=== PATIENT | male | born 1955 | race Caucasian/White ===

== ENCOUNTER 2017-03-20 19:16 | Emergency (ER) | payer OTHER ==
--- NOTE | 2017-03-20 20:53 | DIAGNOSTIC IMAGING REPORT ---
PROCEDURE: CT ABDOMEN/PELVIS W/O CONTRAST INDICATION: Bilateral flank pain with hematuria. TECHNIQUE: Noncontrast axial images were obtained of the entire abdomen and pelvis with sagittal and coronal reformations. COMPARISON: None. FINDINGS: ABDOMEN: 5.2 mm left UVJ calculus with mild left hydro ureteronephrosis. Bilateral nonobstructing renal calculi (2 - 4 mm). Mild bibasilar atelectasis. Heart size is normal. Liver, gallbladder, pancreas, spleen (splenule) and adrenal glands are normal. Mild atherosclerosis of the aorta. PELVIS: Normal appendix. Mild sigmoid diverticulosis. Diastasis of the rectus muscles. Circumferential urinary bladder wall thickening which may be due to lack of distention versus cystitis. Mild degenerative changes of the spine. IMPRESSION: 1. 5.2 mm left UVJ calculus with mild left hydroureteronephrosis 2. Bilateral nonobstructing renal calculi 3. Circumferential urinary bladder wall thickening which may be due to lack of distention versus cystitis 4. Mild sigmoid diverticulosis 5. Results discussed with Opal Cardozo All CT scans at this facility use dose modulation, iterative reconstruction, and/or weight-based dosing when appropriate to reduce radiation dose to as low as reasonably achievable.
--- NOTE | 2017-03-20 22:47 | ED CLINICAL REPORT ---
Clinical Report - Physicians/Mid Levels [facility] [address] [place] [address] 03/20/2017 19:18 Patient: MARCO NEWMAN Time Seen: 20:25; initial patient contact, initial documentation, patient care assumed. Arrived- By private vehicle. Historian- patient and spouse. HISTORY OF PRESENT ILLNESS Chief Complaint: DYSURIA and HEMATURIA. This started today and is still present. The problem is described as severe. It was abrupt in onset and has been constant. No penile discharge, discomfort with urination, urinary frequency, genital lesion or testicular pain. No urgency of urination, Siddiqui catheter problem, inguinal swelling or problem with the foreskin. The patient has had severe, constant, sharp right-sided and left-sided flank pain. Able to void. Not voiding only small amounts. Sexual history is noncontributory. Similar symptoms previously: Once, milder. ( kidney stone). Recent medical care: Not recently seen/assessed. REVIEW OF SYSTEMS No fever, diarrhea, chest pain or difficulty breathing. He has had flank pain, abdominal pain and vomiting. The vomiting has occurred only once. The patient has had hematuria. All systems otherwise negative, except as recorded above. PAST HISTORY See nurses notes. ( PROBLEMS: Acid Reflux. Hypertension. Diabetes Mellitus. --20:17 Slava Johnson R.N. Nephrolithiasis. --20:21 Slava Johnson R.N. ADDITIONAL SURGERIES: Hammer toe repair. Shoulder Surgery. --20:17 Slava Johnson R.Rupali.). SOCIAL HISTORY Never smoker. Regular alcohol use. No drug use. No recent travel. Is a local resident. FAMILY HISTORY Negative. ADDITIONAL NOTES The nursing notes have been reviewed with agreement regarding the chief complaint, HPI, ROS, PMH and patient medications and allergies. PHYSICAL EXAM Vital Signs: 03/20/2017 20:14 BP: 137/93. HR: 68. RR: 24. O2 saturation: 98%. Temp: 98.4 F. Pain level now: 7/10. Have been reviewed as normal and appear to be correct. Appearance: Alert. Oriented X3. No acute distress. ENT: Normal external inspection. Pharynx normal. Neck: Neck supple. CVS: Heart sounds normal. Respiratory: No respiratory distress. Breath sounds normal. Abdomen: Soft and nontender. Bowel sounds normal. No organomegaly. No mass. Back: Abnormal external inspection. Mild CVA tenderness on the right and left. Skin: Skin warm and dry. Normal skin color. No rash. Normal skin turgor. Extremities: Extremities exhibit normal ROM. No lower extremity edema. Neuro: Oriented X 3. No motor deficit. No sensory deficit. LABS, X-RAYS, AND EKG Abdominal CT: . IMPRESSION: 1. 5.2 mm left UVJ calculus with mild left hydroureteronephrosis 2. Bilateral nonobstructing renal calculi 3. Circumferential urinary bladder wall thickening which may be due to lack of distention versus cystitis 4. Mild sigmoid diverticulosis 5. Results discussed with Opal Cardozo All CT scans at this facility use dose modulation, iterative reconstruction, and/or weight-based dosing when appropriate to reduce radiation dose to as low as reasonably achievable. Electronically Final signed by:Nickolas Hatch MD 03/20/2017 8:53:02 PM. The study was interpreted by the radiologist and discussed with the radiologist. Interpretation time: 2049. Laboratory Tests: UA-Culture if indicated: (NANCY: 03/20/2017 22:15) ( [facility] 03/20/2017 22:43) IP Test Result Flag Units (Reference) URINE COLOR YELLOW URINE APPEARANCE SL CLOUDY URINE GLUCOSE NEGATIVE (NEGATIVE) URINE BILIRUBIN NEGATIVE (NEGATIVE) URINE KETONE TRACE (NEGATIVE) URINE SPECIFIC GRAVITY >= 1.030 (1.010-1.030) URINE PH 5.5 (5.0-8.0) URINE PROTEIN 2+ (NEGATIVE) URINE UROBILINOGEN 0.2 EU/dL (0.2-1.0) URINE NITRITE NEGATIVE (NEGATIVE) URINE BLOOD 3+ (NEGATIVE) URINE LEUK ESTERASE NEGATIVE (NEGATIVE) CBC w Diff: (NANCY: 03/20/2017 16:50) ( [facility] 03/20/2017 20:53) Final results Test Result Flag Units (Reference) WHITE BLOOD COUNT 8.4 K/uL (4.5-11.5) RED BLOOD COUNT 4.56 M/uL (4.50-5.90) HEMOGLOBIN 14.0 gm/dL (13.5-17.5) HEMATOCRIT 42.2 % (41.0-53.0) MEAN CELL VOLUME 93 fL (80-100) MEAN CORPUSCULAR HGB 31 pg (26-34) MEAN CORPUSCULAR HGB CONC 33 g/dL (31-37) RED CELL DISTRIBUTION WIDTH 13.9 % (11.6-14.8) PLATELET COUNT 152 K/uL (150-400) NEUTROPHIL % 71.4 % (50-75) LYMPH % 17.7 L % (25-40) MONO % 8.7 % (3-14) EOSINOPHIL % 1.9 % (0-4) BASOPHIL % 0.3 % (0-2) CMP: (NANCY: 03/20/2017 16:50) ( MsgRcvd 03/20/2017 21:15) Final results Test Result Flag Units (Reference) GLUCOSE 137 H mg/dL (70-110) BUN 15 mg/dL (7-18) CREATININE 0.9 mg/dL (0.6-1.3) Estimated GFR >60 mL/min Estimated GFR- >60 mL/min Note: Persistent reduction over 3 months in eGFR<60 mL/min/1.73 m2 defines CKD. Patients with eGFR values>=60 mL/min/1.73 m2 may also have CKD if evidence ofpersistent proteinuria. Additional information may be foundat www.kidney.org. SODIUM 136 mmol/L (136-145) POTASSIUM 3.8 mmol/L (3.5-5.1) CHLORIDE 100 mmol/L (98-107) CARBON DIOXIDE 26 mmol/L (21-32) CALCIUM 9.1 mg/dL (8.5-10.1) TOTAL PROTEIN 8.3 H g/dL (6.4-8.2) ALBUMIN 3.9 g/dL (3.3-5.0) BILIRUBIN, TOTAL 0.7 mg/dL (0.0-1.0) ALKALINE PHOSPHATASE 81 U/L (46-116) AST (SGOT) 31 U/L (15-37) ALT (SGPT) 48 U/L (12-78) LIPASE 211 U/L (73-393) AMYLASE 51 U/L (25-115) . PROGRESS AND PROCEDURES Course of Care: 2209. pt and spouse updated with results and need for ua, pt still has not voided, discussed doing siddiqui catheter if he can not void. 03/20/2017 22:58 BP: 115/84. HR: 74. RR: 18. O2 saturation: 95%. Pain level now: 12/13. Vital Signs: have been reviewed as normal and appear to be correct. Patient and spouse counseled in person regarding the patient's stable condition, test results and diagnosis. 22:44. Differential Diagnosis: I considered gastritis, gastroenteritis, peptic ulcer disease, gastroesophageal reflux disease, acute appendicitis, diverticulitis, colon cancer, ulcerative colitis, Crohn's disease, biliary colic, cholecystitis, cholelithiasis, hepatitis, pancreatitis, common bile duct obstruction, urinary tract infection, prostatitis, ureterolithiasis and viral syndrome as a possible cause of abdominal pain in this patient. This is a partial list of diagnoses considered. Above considerations are based on history, physical exam, reassessment, laboratory data and other information. Differential diagnosis was discussed with patient. Disposition: Discharged home in good and improved condition (22:47). Condition: good and stable. CLINICAL IMPRESSION Ureterolithiasis (multiple stones) in the right ureter and kidney and left kidney with renal colic, hydronephrosis and hematuria. No acute pyelonephritis or urinary tract infection. INSTRUCTIONS Do not work today, for two days. Drink plenty of fluids for the next 24 hours until better. Warnings: GENERAL WARNINGS: Return or contact your physician immediately if your condition worsens or changes unexpectedly, if not improving as expected, or if other problems arise. Specifically return if problem worsens. Prescription Medications: Zofran 4 mg: Take 1 orally every six hours as needed for nausea/vomiting. Dispense ten (10). No refills. Substitution is permissible. [place] 5 mg / 325 mg tablets: take 1 to 2 orally every 6 hours as needed for pain. Dispense fifteen (15). No refills. Substitution is permissible. Toradol 10 mg tablets: Take 1 tablet orally every 6 hours as needed. Dispense fifteen (15). No refills. Substitution is permissible. Flomax 0.4 mg: take 1 orally every 24 hours. Dispense fifteen (15). No refills. Substitution is permissible. Follow-up: Follow up with your doctor in about two days even if well. Call for an appointment. Summary of care provided to patient and family. Understanding of the discharge instructions verbalized by patient. Follow-up with: Ramon Lazar MD, Urology, , [address] [address]; Trey Kay MD, Urology, , [address] [address] Follow up in about two days as needed. Call for an appointment. Summary of care provided to patient and family. (Electronically signed by Opal Cardozo A.R.N.P. 03/20/2017 23:03)
--- NOTE | 2017-03-20 22:47 | ED ORDER SUMMARY ---
..... Patient: MARCO NEWMAN [facility] VisitID: [id number] [address] [place] [address] 61y, M Registration Date/Time: 03/20/2017 ORDER SHEET Weight: 92.9 kg (stated) Allergies: No Known Drug Allergy GENERAL ORDERS: CT Abd/Pel wo Cont Urgent (20:30 03/20/2017 HBivens A.R.N.P.) (Ack 20:35 [facility] [employer]) (20:47 MCampbell) CBC w Diff Urgent (20:31 03/20/2017 HBivens A.R.N.P.) (20:31 DDavis R.N.) CMP Urgent (20:31 03/20/2017 HBivens A.R.N.P.) (20:31 DDavis R.N.) UA-Culture if indicated Urgent (20:31 03/20/2017 HBivens A.R.N.P.) (Ack 20:32 DDavis R.N.) (22:37 DDavis R.N.) Amylase Urgent (20:31 03/20/2017 HBivens A.R.N.P.) (20:31 DDavis R.N.) Lipase Urgent (20:31 03/20/2017 HBivens A.R.N.P.) (20:31 DDavis R.N.) MEDICATION ORDERS: Hydrocodone-APAP PO 5/325 mg (NOW, HIGH ALERT MEDICATION) (22:48 03/20/2017 HBivens A.R.N.P.) (22:58 DDavis R.N.) IV FLUIDS: IV NS : initial bolus 1000 mL (1000 mL/hr), then none - (NOW) (20:30 03/20/2017 HBivens A.R.N.P.) (Ack 20:32 DDavis R.N.) (20:39 DDavis R.N.) Toradol IV 30 mg (NOW) (20:30 03/20/2017 HBivens A.R.N.P.) (Ack 20:32 DDavis R.N.) (20:39 DDavis R.N.) Zofran IV 4 mg (NOW) (20:30 03/20/2017 HBivens A.R.N.P.) (Ack 20:32 DDavis R.N.) (20:39 DDavis R.N.) IV Saline Lock (20:31 03/20/2017 HBivens A.R.N.P.) (20:31 DDavis R.N.) ORDER SHEET NOTES: [Electronically signed by Slava Johnson R.N. (23:03/20/2017)] [Electronically signed by Opal CardozoNStephaniePStephanie (23:03 03/20/2017)] [Electronically locked/signed by Slava Johnson R.N. (23:03/20/2017)]
--- NOTE | 2017-03-20 22:47 | ED CLINICAL REPORT ---
Clinical Report - Physicians/Mid Levels [facility] [address] [place] [address] 03/20/2017 19:18 Patient: MARCO NEWMAN Time Seen: 20:25; initial patient contact, initial documentation, patient care assumed. Arrived- By private vehicle. Historian- patient and spouse. HISTORY OF PRESENT ILLNESS Chief Complaint: DYSURIA and HEMATURIA. This started today and is still present. The problem is described as severe. It was abrupt in onset and has been constant. No penile discharge, discomfort with urination, urinary frequency, genital lesion or testicular pain. No urgency of urination, Siddiqui catheter problem, inguinal swelling or problem with the foreskin. The patient has had severe, constant, sharp right-sided and left-sided flank pain. Able to void. Not voiding only small amounts. Sexual history is noncontributory. Similar symptoms previously: Once, milder. ( kidney stone). Recent medical care: Not recently seen/assessed. REVIEW OF SYSTEMS No fever, diarrhea, chest pain or difficulty breathing. He has had flank pain, abdominal pain and vomiting. The vomiting has occurred only once. The patient has had hematuria. All systems otherwise negative, except as recorded above. PAST HISTORY See nurses notes. ( PROBLEMS: Acid Reflux. Hypertension. Diabetes Mellitus. --20:17 Slava Johnson R.N. Nephrolithiasis. --20:21 Slava Johnson R.N. ADDITIONAL SURGERIES: Hammer toe repair. Shoulder Surgery. --20:17 Slava Johnson R.Rupali.). SOCIAL HISTORY Never smoker. Regular alcohol use. No drug use. No recent travel. Is a local resident. FAMILY HISTORY Negative. ADDITIONAL NOTES The nursing notes have been reviewed with agreement regarding the chief complaint, HPI, ROS, PMH and patient medications and allergies. PHYSICAL EXAM Vital Signs: 03/20/2017 20:14 BP: 137/93. HR: 68. RR: 24. O2 saturation: 98%. Temp: 98.4 F. Pain level now: 7/10. Have been reviewed as normal and appear to be correct. Appearance: Alert. Oriented X3. No acute distress. ENT: Normal external inspection. Pharynx normal. Neck: Neck supple. CVS: Heart sounds normal. Respiratory: No respiratory distress. Breath sounds normal. Abdomen: Soft and nontender. Bowel sounds normal. No organomegaly. No mass. Back: Abnormal external inspection. Mild CVA tenderness on the right and left. Skin: Skin warm and dry. Normal skin color. No rash. Normal skin turgor. Extremities: Extremities exhibit normal ROM. No lower extremity edema. Neuro: Oriented X 3. No motor deficit. No sensory deficit. LABS, X-RAYS, AND EKG Abdominal CT: . IMPRESSION: 1. 5.2 mm left UVJ calculus with mild left hydroureteronephrosis 2. Bilateral nonobstructing renal calculi 3. Circumferential urinary bladder wall thickening which may be due to lack of distention versus cystitis 4. Mild sigmoid diverticulosis 5. Results discussed with Opal Cardozo All CT scans at this facility use dose modulation, iterative reconstruction, and/or weight-based dosing when appropriate to reduce radiation dose to as low as reasonably achievable. Electronically Final signed by:Nickolas Hatch MD 03/20/2017 8:53:02 PM. The study was interpreted by the radiologist and discussed with the radiologist. Interpretation time: 2049. Laboratory Tests: UA-Culture if indicated: (NANCY: 03/20/2017 22:15) ( [facility] 03/20/2017 22:43) IP Test Result Flag Units (Reference) URINE COLOR YELLOW URINE APPEARANCE SL CLOUDY URINE GLUCOSE NEGATIVE (NEGATIVE) URINE BILIRUBIN NEGATIVE (NEGATIVE) URINE KETONE TRACE (NEGATIVE) URINE SPECIFIC GRAVITY >= 1.030 (1.010-1.030) URINE PH 5.5 (5.0-8.0) URINE PROTEIN 2+ (NEGATIVE) URINE UROBILINOGEN 0.2 EU/dL (0.2-1.0) URINE NITRITE NEGATIVE (NEGATIVE) URINE BLOOD 3+ (NEGATIVE) URINE LEUK ESTERASE NEGATIVE (NEGATIVE) CBC w Diff: (NANCY: 03/20/2017 16:50) ( [facility] 03/20/2017 20:53) Final results Test Result Flag Units (Reference) WHITE BLOOD COUNT 8.4 K/uL (4.5-11.5) RED BLOOD COUNT 4.56 M/uL (4.50-5.90) HEMOGLOBIN 14.0 gm/dL (13.5-17.5) HEMATOCRIT 42.2 % (41.0-53.0) MEAN CELL VOLUME 93 fL (80-100) MEAN CORPUSCULAR HGB 31 pg (26-34) MEAN CORPUSCULAR HGB CONC 33 g/dL (31-37) RED CELL DISTRIBUTION WIDTH 13.9 % (11.6-14.8) PLATELET COUNT 152 K/uL (150-400) NEUTROPHIL % 71.4 % (50-75) LYMPH % 17.7 L % (25-40) MONO % 8.7 % (3-14) EOSINOPHIL % 1.9 % (0-4) BASOPHIL % 0.3 % (0-2) CMP: (NANCY: 03/20/2017 16:50) ( MsgRcvd 03/20/2017 21:15) Final results Test Result Flag Units (Reference) GLUCOSE 137 H mg/dL (70-110) BUN 15 mg/dL (7-18) CREATININE 0.9 mg/dL (0.6-1.3) Estimated GFR >60 mL/min Estimated GFR- >60 mL/min Note: Persistent reduction over 3 months in eGFR<60 mL/min/1.73 m2 defines CKD. Patients with eGFR values>=60 mL/min/1.73 m2 may also have CKD if evidence ofpersistent proteinuria. Additional information may be foundat www.kidney.org. SODIUM 136 mmol/L (136-145) POTASSIUM 3.8 mmol/L (3.5-5.1) CHLORIDE 100 mmol/L (98-107) CARBON DIOXIDE 26 mmol/L (21-32) CALCIUM 9.1 mg/dL (8.5-10.1) TOTAL PROTEIN 8.3 H g/dL (6.4-8.2) ALBUMIN 3.9 g/dL (3.3-5.0) BILIRUBIN, TOTAL 0.7 mg/dL (0.0-1.0) ALKALINE PHOSPHATASE 81 U/L (46-116) AST (SGOT) 31 U/L (15-37) ALT (SGPT) 48 U/L (12-78) LIPASE 211 U/L (73-393) AMYLASE 51 U/L (25-115) . PROGRESS AND PROCEDURES Course of Care: 2209. pt and spouse updated with results and need for ua, pt still has not voided, discussed doing siddiqui catheter if he can not void. 03/20/2017 22:58 BP: 115/84. HR: 74. RR: 18. O2 saturation: 95%. Pain level now: 12/13. Vital Signs: have been reviewed as normal and appear to be correct. Patient and spouse counseled in person regarding the patient's stable condition, test results and diagnosis. 22:44. Differential Diagnosis: I considered gastritis, gastroenteritis, peptic ulcer disease, gastroesophageal reflux disease, acute appendicitis, diverticulitis, colon cancer, ulcerative colitis, Crohn's disease, biliary colic, cholecystitis, cholelithiasis, hepatitis, pancreatitis, common bile duct obstruction, urinary tract infection, prostatitis, ureterolithiasis and viral syndrome as a possible cause of abdominal pain in this patient. This is a partial list of diagnoses considered. Above considerations are based on history, physical exam, reassessment, laboratory data and other information. Differential diagnosis was discussed with patient. Disposition: Discharged home in good and improved condition (22:47). Condition: good and stable. CLINICAL IMPRESSION Ureterolithiasis (multiple stones) in the right ureter and kidney and left kidney with renal colic, hydronephrosis and hematuria. No acute pyelonephritis or urinary tract infection. INSTRUCTIONS Do not work today, for two days. Drink plenty of fluids for the next 24 hours until better. Warnings: GENERAL WARNINGS: Return or contact your physician immediately if your condition worsens or changes unexpectedly, if not improving as expected, or if other problems arise. Specifically return if problem worsens. Prescription Medications: Zofran 4 mg: Take 1 orally every six hours as needed for nausea/vomiting. Dispense ten (10). No refills. Substitution is permissible. [place] 5 mg / 325 mg tablets: take 1 to 2 orally every 6 hours as needed for pain. Dispense fifteen (15). No refills. Substitution is permissible. Toradol 10 mg tablets: Take 1 tablet orally every 6 hours as needed. Dispense fifteen (15). No refills. Substitution is permissible. Flomax 0.4 mg: take 1 orally every 24 hours. Dispense fifteen (15). No refills. Substitution is permissible. Follow-up: Follow up with your doctor in about two days even if well. Call for an appointment. Summary of care provided to patient and family. Understanding of the discharge instructions verbalized by patient. Follow-up with: Ramon Lazar MD, Urology, , [address] [address]; Trey Kay MD, Urology, , [address] [address] Follow up in about two days as needed. Call for an appointment. Summary of care provided to patient and family. (Electronically signed by Opal Cardozo A.R.N.P. 03/20/2017 23:03)
--- NOTE | 2017-03-20 22:47 | ED ORDER SUMMARY ---
..... Patient: MARCO NEWMAN OrderSheet [facility] VisitID: [id number] [address] [place] [address] 61y, M Registration Date/Time: 03/20/2017 ORDER SHEET Weight: 92.9 kg (stated) Allergies: No Known Drug Allergy GENERAL ORDERS: CT Abd/Pel wo Cont Urgent (20:30 03/20/2017 HBivens A.R.N.P.) (Ack 20:35 [facility] [employer]) (20:47 MCampbell) CBC w Diff Urgent (20:31 03/20/2017 HBivens A.R.N.P.) (20:31 DDavis R.N.) CMP Urgent (20:31 03/20/2017 HBivens A.R.N.P.) (20:31 DDavis R.N.) UA-Culture if indicated Urgent (20:31 03/20/2017 HBivens A.R.N.P.) (Ack 20:32 DDavis R.N.) (22:37 DDavis R.N.) Amylase Urgent (20:31 03/20/2017 HBivens A.R.N.P.) (20:31 DDavis R.N.) Lipase Urgent (20:31 03/20/2017 HBivens A.R.N.P.) (20:31 DDavis R.N.) MEDICATION ORDERS: Hydrocodone-APAP PO 5/325 mg (NOW, HIGH ALERT MEDICATION) (22:48 03/20/2017 HBivens A.R.N.P.) (22:58 DDavis R.N.) IV FLUIDS: IV NS : initial bolus 1000 mL (1000 mL/hr), then none - (NOW) (20:30 03/20/2017 HBivens A.R.N.P.) (Ack 20:32 DDavis R.N.) (20:39 DDavis R.N.) Toradol IV 30 mg (NOW) (20:30 03/20/2017 HBivens A.R.N.P.) (Ack 20:32 DDavis R.N.) (20:39 DDavis R.N.) Zofran IV 4 mg (NOW) (20:30 03/20/2017 HBivens A.R.N.P.) (Ack 20:32 DDavis R.N.) (20:39 DDavis R.N.) IV Saline Lock (20:31 03/20/2017 HBivens A.R.N.P.) (20:31 DDavis R.N.) ORDER SHEET NOTES: [Electronically signed by Slava Johnson R.N. (23:03/20/2017)] [Electronically signed by Opal CardozoNStephaniePStephanie (23:03 03/20/2017)] [Electronically locked/signed by Slava Johnson R.N. (23:03/20/2017)]
--- NOTE | 2017-03-20 22:47 | ED NURSING NOTES ---
Clinical Report - Nurses [facility] [address] [place] [address] 03/20/2017 19:18 Patient: MARCO NEWMAN TRIAGE Triage time 20:14. Acuity: LEVEL 3. Chief Complaint: HEMATURIA and DIFFICULTY VOIDING. Alert. --20:21 Slava Johnson R.N. 20:14 03/20/17. BP: 137/93. HR: 68. RR: 24. O2 saturation: 98% on room air. Temp: 98.4 F (oral). Pain level now: 05/12. --20:21 Slava Johnson R.N. Weight: 92.9 kg stated. Height/Length: 68 inches Per Patient. BMI: 31.1. --20:14 Slava Johnson R.N. Medications Losartan Potassium Oral. --20:15 Slava Johnson R.N. Atenolol Oral. --20:15 Slava Johnson R.N. MetFORMIN HCl Oral. --20:16 Slava Johnson R.N. PriLOSEC Oral. --20:16 Slava Johnson R.N. Allergies No Known Drug Allergy. --20:15 Slava Johnson R.N. History Arrived by private vehicle. Historian: patient. Accompanied by family. This started today. ( States having abdominal pain, lower back pain, and 1 occurrence of vomiting.). PAST MEDICAL HX: Diabetes mellitus. SOCIAL HX: Never smoker. Regular alcohol use. No drug use. ( denies SI/HI, states taht he feels safe). ABUSE ASSESSMENT: No report of abuse. FALL RISK ASSESSMENT: Fall risk assessment completed. No fall risk identified. NUTRITIONAL RISK ASSESSMENT: The nutritional risk assessment revealed no deficiencies. FUNCTIONAL ASSESSMENT: Functional assessment: no impairments noted. LEARNING NEEDS ASSESSMENT: The learning needs assessment revealed no barriers. --20:21 Slava Johnson R.N. PROBLEMS: Acid Reflux. Hypertension. Diabetes Mellitus. --20:17 Slava Johnson R.N. Nephrolithiasis. --20:21 Slava Johnson R.N. ADDITIONAL SURGERIES: Hammer toe repair. Shoulder Surgery. --20:17 Slava Johnson R.N. Interventions ID band on patient. To treatment room. --20:21 Slava Johnson R.N. PHYSICAL ASSESSMENT Ambulatory to room. ( see triage assessment. Patient states that since 4:30pm he has not been able to urinate). GENERAL / NEURO / PSYCH: Alert. Oriented X 4. Appears in pain. HEENT: Mucous membranes are pink. RESPIRATORY: Respirations not labored. CVS: Capillary refill less than 2 seconds. SKIN: Skin is warm and dry. --20:22 Slava Johnson R.N. NURSING PROGRESS NOTES Patient gowned. Reassurance given. Two patient identifiers checked. Call light placed in reach. Side rails up x 1. Bed placed in lowest position. Brakes of bed on. Patient ready for evaluation- chart flagged. Patient waiting for evaluation. --20:22 Slava Johnson R.N. 20:22 03/20/2017 One (1) unsuccessful IV access attempt including the left antecubital space. Applied bandage and manual pressure (attempted by EMMY Gamboa--blood obtained by her from her attempt). --20:28 Slava Johnson R.N. 20:27 03/20/2017 Site #1 started via IV in the right antecubital space with an 20g angiocath using 1% intra-dermal lidocaine, with aseptic technique and good blood return; one attempt. Saline lock flushed with 10 mL saline. --20:27 Slava Johnson R.N. ( Patient states that he cannot urinate for a urine sample). --20:32 Slava Johnson R.N. 20:33 03/20/2017 Zofran (Ondansetron HCl) IVP 4 mg given over 1 minute(s) via site #1. IV patency established. IV site checked: no pain, redness, or swelling. IV flushed thoroughly pre- and post-medication administration. --20:39 Slava Johnson R.N. 20:34 03/20/2017 Toradol IVP 30 mg given over 2 minute(s) via site #1. Allergies verified and confirmed 5 rights. IV patency established. IV site checked: no pain, redness, or swelling. IV flushed thoroughly pre- and post-medication administration. IVP given by RN. --20:39 Slava Johnson R.N. 20:37 03/20/2017 Started bag #1 1000 mL IV Fluids IV NS (Saline); at 1000 mL/hr over 1 hour(s) via site #1. Allergies verified and confirmed 5 rights. IV patency established. IV site checked: no pain, redness, or swelling. IV flushed thoroughly pre- and post-medication administration. Completed per protocol. --20:39 Slava Johnson R.N. ( Patient taken to CT with residential gas heat technician). --20:40 Slava Johnson R.N. ( Bladder scan at bedside result = 37ml, Patient does not feel the urge to void at this time, but states that he usually has to void frequently, and has not voided since 1630 today). --21:02 Slava Johnson R.N. ( Patient attempted to urinate for the urine sample. Patient is restroom). --22:20 Slava Johnson R.N. 21:40 03/20/2017 IV Fluids IV NS Discontinued: completed. Total amount infused: 1000 mL. IV patency established. IV site checked: no pain, redness, or swelling. IV flushed thoroughly. --23:00 Slava Johnson R.N. 22:55 03/20/2017 Hydrocodone-APAP (Hydrocodone-Acetaminophen) PO 5/325 mg Tablets 1 tab given. Allergies verified, confirmed 5 rights and sedative warning given to the patient and patient's family. --22:58 Slava Johnson R.N. 22:56 03/20/2017 Site #1 removed upon discharge. Manual pressure and bandage applied. --22:58 Slava Johnson R.N. DISPOSITION / DISCHARGE Departure time: 22:59. Condition at departure: stable. No learning barriers present. Discharge instructions provided and reviewed with the spouse. Reviewed warnings. Reviewed medication(s) side effects, precautions, dosing and course information. Prescription(s) given to the patient. Treatments reviewed. Reviewed referrals for followup. Patient and spouse verbalized understanding. Written instructions provided in Kiswahili. The patient was discharged home and accompanied by spouse. He left the Emergency Department ambulatory and via private vehicle. Spouse driving. --23:00 Slava Johnson R.N. 22:58 03/20/17. BP: 115/84. HR: 74. RR: 18 (regular and unlabored). O2 saturation: 95% on room air. Pain level now: 12/13. --23:00 Slava Johnson R.N. Locked/Released at 03/20/2017 23:01 by Slava Johnson R.N.
--- NOTE | 2017-03-20 23:04 | ED MED RECONCILIATION SUMMARY ---
Patient: MARCO NEWMAN Medication Reconciliation Report [facility] VisitID: [id number] [place] [address] 61y, M Registration Date/Time: 03/20/2017 Weight: 92.9 kg Height/Length: 68 in. BMI: 31.1 ALLERGIES: No Known Drug Allergy The patient's Home Medications are listed below: THE FOLLOWING MEDICATIONS NEED TO BE RECONCILED: Atenolol Oral Losartan Potassium Oral MetFORMIN HCl Oral PriLOSEC Oral The source(s) of the original Home Medication information: Not obtained. The following Medications were given to the patient in the Emergency Department: IV NS IV Fluids bolus 0, then 1000 mL/hr, administered: 03/20/2017 8:37:00 PM Toradol [IVP] IVP 30 mg, administered: 03/20/2017 8:34:00 PM Zofran [IVP] IVP 4 mg, administered: 03/20/2017 8:33:00 PM Hydrocodone-APAP [PO] PO 1 tab, administered: 03/20/2017 10:55:00 PM The following Medications were prescribed to the patient: Zofran 4 mg: Take 1 orally every six hours as needed for nausea/vomiting. Dispense ten (10). No refills. Substitution is permissible. -- Opal Cardozo, A.R.N.P. [place] 5 mg / 325 mg tablets: take 1 to 2 orally every 6 hours as needed for pain. Dispense fifteen (15). No refills. Substitution is permissible. -- Opal Cardozo A.R.N.P. Toradol 10 mg tablets: Take 1 tablet orally every 6 hours as needed. Dispense fifteen (15). No refills. Substitution is permissible. -- Opal Cardozo A.R.N.P. Flomax 0.4 mg: take 1 orally every 24 hours. Dispense fifteen (15). No refills. Substitution is permissible. -- Opal Cardozo A.R.N.P.
--- NOTE | 2017-03-20 23:04 | ED MAR SUMMARY ---
..... Medication Administration Record [facility] [address] [place] [address] Patient: MARCO NEWMAN Visit ID: [id number] 61y, M Weight: 92.9 kg Height/Length: 68 in BMI: 31.1 ALLERGIES: No Known Drug Allergy Given 20:33 03/20/2017 Slava Johnson R.N. Medication Administered: ZOFRAN [IVP] (ONDANSETRON HCL), Dose: 4 mg IVP over 1 minute(s), Site: #1 right AC. Medication Ordered: Zofran IV 4 mg (NOW). Given 20:34 03/20/2017 Slava Johnson R.N. Medication Administered: TORADOL [IVP], Dose: 30 mg IVP over 2 minute(s), Site: #1 right AC. Medication Ordered: Toradol IV 30 mg (NOW). Start 20:37 03/20/2017 Slava Johnson R.N., Stop 21:40 03/20/2017 Slava Johnson R.N. Medication Administered: IV NS (SALINE), Dose: IV Fluids over 1 hour(s), Rate: 1000 mL/hr, Dispensed: 1000 mL bag, Site: #1 right AC. Medication Ordered: IV NS : initial bolus 1000 mL (1000 mL/hr), then none - (NOW). Given 22:55 03/20/2017 Slava Johnson R.N. Medication Administered: HYDROCODONE-APAP [PO] (HYDROCODONE-ACETAMINOPHEN), Dose: 1 tab 5/325 mg Tablets PO. Medication Ordered: Hydrocodone-APAP PO 5/325 mg (NOW, HIGH ALERT MEDICATION).
--- NOTE | 2017-03-20 23:04 | ED MED RECONCILIATION SUMMARY ---
Patient: MARCO NEWMAN Medication Reconciliation Report [facility] VisitID: [id number] [place] [address] 61y, M Registration Date/Time: 03/20/2017 Weight: 92.9 kg Height/Length: 68 in. BMI: 31.1 ALLERGIES: No Known Drug Allergy The patient's Home Medications are listed below: THE FOLLOWING MEDICATIONS NEED TO BE RECONCILED: Atenolol Oral Losartan Potassium Oral MetFORMIN HCl Oral PriLOSEC Oral The source(s) of the original Home Medication information: Not obtained. The following Medications were given to the patient in the Emergency Department: IV NS IV Fluids bolus 0, then 1000 mL/hr, administered: 03/20/2017 8:37:00 PM Toradol [IVP] IVP 30 mg, administered: 03/20/2017 8:34:00 PM Zofran [IVP] IVP 4 mg, administered: 03/20/2017 8:33:00 PM Hydrocodone-APAP [PO] PO 1 tab, administered: 03/20/2017 10:55:00 PM The following Medications were prescribed to the patient: Zofran 4 mg: Take 1 orally every six hours as needed for nausea/vomiting. Dispense ten (10). No refills. Substitution is permissible. -- Opal Cardozo, A.R.N.P. [place] 5 mg / 325 mg tablets: take 1 to 2 orally every 6 hours as needed for pain. Dispense fifteen (15). No refills. Substitution is permissible. -- Opal Cardozo A.R.N.P. Toradol 10 mg tablets: Take 1 tablet orally every 6 hours as needed. Dispense fifteen (15). No refills. Substitution is permissible. -- Opal Cardozo A.R.N.P. Flomax 0.4 mg: take 1 orally every 24 hours. Dispense fifteen (15). No refills. Substitution is permissible. -- Opal Cardozo A.R.N.P.
--- NOTE | 2017-03-20 23:04 | ED MAR SUMMARY ---
..... Medication Administration Record [facility] [address] [place] [address] Patient: MARCO NEWMAN Visit ID: [id number] 61y, M Weight: 92.9 kg Height/Length: 68 in BMI: 31.1 ALLERGIES: No Known Drug Allergy Given 20:33 03/20/2017 Slava Johnson R.N. Medication Administered: ZOFRAN [IVP] (ONDANSETRON HCL), Dose: 4 mg IVP over 1 minute(s), Site: #1 right AC. Medication Ordered: Zofran IV 4 mg (NOW). Given 20:34 03/20/2017 Slava Johnson R.N. Medication Administered: TORADOL [IVP], Dose: 30 mg IVP over 2 minute(s), Site: #1 right AC. Medication Ordered: Toradol IV 30 mg (NOW). Start 20:37 03/20/2017 Slava Johnson R.N., Stop 21:40 03/20/2017 Slava Johnson R.N. Medication Administered: IV NS (SALINE), Dose: IV Fluids over 1 hour(s), Rate: 1000 mL/hr, Dispensed: 1000 mL bag, Site: #1 right AC. Medication Ordered: IV NS : initial bolus 1000 mL (1000 mL/hr), then none - (NOW). Given 22:55 03/20/2017 Slava Johnson R.N. Medication Administered: HYDROCODONE-APAP [PO] (HYDROCODONE-ACETAMINOPHEN), Dose: 1 tab 5/325 mg Tablets PO. Medication Ordered: Hydrocodone-APAP PO 5/325 mg (NOW, HIGH ALERT MEDICATION).
--- NOTE | 2017-03-20 23:04 | ED DISCHARGE INSTRUCTIONS ---
Patient: MARCO NEWMAN General Instructions [facility] VisitID: [id number] [place] [address] 61y, M Registration Date/Time: 03/20/2017 Ureterolithiasis (multiple stones) in the right ureter and kidney and left kidney with renal colic, hydronephrosis and hematuria. No acute pyelonephritis or urinary tract infection. INSTRUCTIONS Do not work today, for two days. Drink plenty of fluids for the next 24 hours until better. Warnings: GENERAL WARNINGS: Return or contact your physician immediately if your condition worsens or changes unexpectedly, if not improving as expected, or if other problems arise. Specifically return if problem worsens. Prescription Medications: Zofran 4 mg: Take 1 orally every six hours as needed for nausea/vomiting. Dispense ten (10). No refills. Substitution is permissible. [place] 5 mg / 325 mg tablets: take 1 to 2 orally every 6 hours as needed for pain. Dispense fifteen (15). No refills. Substitution is permissible. Toradol 10 mg tablets: Take 1 tablet orally every 6 hours as needed. Dispense fifteen (15). No refills. Substitution is permissible. Flomax 0.4 mg: take 1 orally every 24 hours. Dispense fifteen (15). No refills. Substitution is permissible. Follow-up: Follow up with your doctor in about two days even if well. Call for an appointment. Summary of care provided to patient and family. Understanding of the discharge instructions verbalized by patient. Follow-up with: Ramon Lazar MD, Urology, , [address] [address]; Trey Kay MD, Urology, , [address] [address] Follow up in about two days as needed. Call for an appointment. Summary of care provided to patient and family. ADDITIONAL INFORMATION Kidney Stone (W/ Colic) The sharp cramping pain and nausea/vomiting that you have is due to a small stone which has formed in the kidney and is now passing down a narrow tube (ureter) on its way to your bladder. Once it reaches your bladder, the pain will stop. The stone may pass in your urine stream in one piece. [The size may be 1/16" to 1/4" (1-6mm)]. Or, the stone may also break up into christelle fragments which you may not even notice. Once you have had a kidney stone, you are at risk for developing another one in the future. Home Care: Drink plenty of fluids (at least 8 to 10 glasses of water a day). Most stones will pass on their own, but may take from a few hours to a few days. Sometimes the stone is too large to pass by itself and special methods will have to be used to remove the stone. Each time you urinate, do so in a jar. Pour the urine from the jar through the strainer and into the toilet. Continue doing this until 24 hours after your pain stops. By then, if there was a kidney stone, it should pass from your bladder. Some stones dissolve into sand-like particles and pass right through the strainer. In that case, you wont ever see a stone. Save any stone that you find in the strainer and bring it to your doctor for analysis. It may be possible to prevent certain types of stones from forming. Therefore, it is important to know what kind of stone you have. Try to stay as active as possible since this will help the stone pass. Do not stay in bed unless your pain prevents you from getting up. You may notice a red, pink or brown color to your urine. This is normal while passing a kidney stone. Follow Up with your doctor or return to this facility if the pain lasts more than 48 hours. Get Prompt Medical Attention if any of the following occur: Pain that is not controlled by the medicine given Repeated vomiting or unable to keep down fluids Weakness, dizziness or fainting Fever of 100.4F (38C) or higher, or as directed by your healthcare provider Passage of solid red or brown urine (can't see through it) or urine with lots of blood clots Unable to pass urine for 8 hours and increasing bladder pressure Blood In The Urine Blood in the urine ("hematuria") has many possible causes. If it occurs after an injury (such as a car accident or fall), it is most often a sign of bruising to the kidney or bladder. Common medical causes of blood in the urine include urinary tract infection, kidney stone, inflammation, tumors, or certain other diseases of the kidney or bladder. Menstruation can cause blood to appear in the urine sample, although it is not coming from the urinary tract. If only a trace amount of blood is present, it will show up on the urine test, even though the urine may be yellow and not pink or red. This may occur with any of the above conditions, as well as heavy exercise or high fever. In this case, your doctor may want to repeat the urine test on another day. This will show if the blood is still present. If so, then other tests can be done to find out the cause. Home Care: If your urine does not appear bloody (pink, brown or red) then you do not need to restrict your activity in any way. If you can see blood in your urine, rest and avoid heavy exertion until your next exam. Do not use aspirin or anti-inflammatory medicine like ibuprofen (Motrin, Advil) or naproxen (Naprosyn, Aleve). These thin the blood and may increase bleeding. Follow Up with your doctor or as advised by our staff. If you were injured and had blood in your urine, you should have a repeat urine test in 1-2 days. Contact your doctor or return to this facility for this test. [NOTE: A radiologist will review any X-rays that were taken. We will notify you of any new findings that may affect your care.] Get Prompt Medical Attention if any of the following occur: Bright red blood or blood clots in the urine (if a new symptom) Weakness, dizziness or fainting New groin, abdominal or back pain Fever of 100.4F (38C) or higher, or as directed by your healthcare provider Repeated vomiting Bleeding from nose, gums or easy bruising Ondansetron Oral disintegrating tablet What is this medicine? ONDANSETRON (on CLARK se tina) is used to treat nausea and vomiting caused by chemotherapy. It is also used to prevent or treat nausea and vomiting after surgery. How should I use this medicine? These tablets are made to dissolve in the mouth. Do not try to push the tablet through the foil backing. With dry hands, peel away the foil backing and gently remove the tablet. Place the tablet in the mouth and allow it to dissolve, then swallow. While you may take these tablets with water, it is not necessary to do so. Talk to your mechanical oxidizer regarding the use of this medicine in children. Special care may be needed. What side effects may I notice from receiving this medicine? Side effects that you should report to your doctor or health career development director as soon as possible: allergic reactions like skin rash, itching or hives, swelling of the face, lips, or tongue breathing problems dizziness fast or irregular heartbeat feeling faint or lightheaded, falls fever and chills swelling of the hands and feet tightness in the chest Side effects that usually do not require medical attention (report to your doctor or health career development director if they continue or are bothersome): constipation or diarrhea headache What may interact with this medicine? Do not take this medicine with any of the following medications: -apomorphine -cisapride -dofetilide -dronedarone -pimozide -thioridazine -ziprasidone This medicine may also interact with the following medications: -carbamazepine -phenytoin -rifampicin -tramadol -other medicines that prolong the QT interval (cause an abnormal heart rhythm) What if I miss a dose? If you miss a dose, take it as soon as you can. If it is almost time for your next dose, take only that dose. Do not take double or extra doses. Where should I keep my medicine? Keep out of the reach of children. Store between 2 and 30 degrees C (36 and 86 degrees F). Throw away any unused medicine after the expiration date. What should I tell my health care provider before I take this medicine? They need to know if you have any of these conditions: heart disease history of irregular heartbeat liver disease low levels of magnesium or potassium in the blood an unusual or allergic reaction to ondansetron, granisetron, other medicines, foods, dyes, or preservatives or trying to get breast-feeding What should I watch for while using this medicine? Check with your doctor or health career development director as soon as you can if you have any sign of an allergic reaction. Hydrocodone Bitartrate, Acetaminophen Oral tablet What is this medicine? ACETAMINOPHEN; HYDROCODONE (a set a MIRELLA franca fen; naseem droe KOE done) is a pain reliever. It is used to treat mild to moderate pain. How should I use this medicine? Take this medicine by mouth. Swallow it with a full glass of water. Follow the directions on the prescription label. If the medicine upsets your stomach, take the medicine with food or milk. Do not take more than you are told to take. Talk to your mechanical oxidizer regarding the use of this medicine in children. This medicine is not approved for use in children. What side effects may I notice from receiving this medicine? Side effects that you should report to your doctor or health career development director as soon as possible: allergic reactions like skin rash, itching or hives, swelling of the face, lips, or tongue breathing problems confusion feeling faint or lightheaded, falls stomach pain yellowing of the eyes or skin Side effects that usually do not require medical attention (report to your doctor or health career development director if they continue or are bothersome): nausea, vomiting stomach upset What may interact with this medicine? alcohol antihistamines isoniazid medicines for depression, anxiety, or psychotic disturbances medicines for sleep muscle relaxants naltrexone narcotic medicines (opiates) for pain phenobarbital ritonavir tramadol What if I miss a dose? If you miss a dose, take it as soon as you can. If it is almost time for your next dose, take only that dose. Do not take double or extra doses. Where should I keep my medicine? Keep out of the reach of children. This medicine can be abused. Keep your medicine in a safe place to protect it from theft. Do not share this medicine with anyone. Selling or giving away this medicine is dangerous and against the law. Store at room temperature between 15 and 30 degrees C (59 and 86 degrees F). Protect from light. Keep container tightly closed. Throw away any unused medicine after the expiration date. Discard unused medicine and used packaging carefully. Pets and children can be harmed if they find used or lost packages. What should I tell my health care provider before I take this medicine? They need to know if you have any of these conditions: brain tumor Crohn's disease, inflammatory bowel disease, or ulcerative colitis drink more than 3 alcohol-containing drinks per day drug abuse or addiction head injury heart or circulation problems kidney disease or problems going to the bathroom liver disease lung disease, asthma, or breathing problems an unusual or allergic reaction to acetaminophen, hydrocodone, other opioid analgesics, other medicines, foods, dyes, or preservatives or trying to get breast-feeding What should I watch for while using this medicine? Tell your doctor or health career development director if your pain does not go away, if it gets worse, or if you have new or a different type of pain. You may develop tolerance to the medicine. Tolerance means that you will need a higher dose of the medicine for pain relief. Tolerance is normal and is expected if you take the medicine for a long time. Do not suddenly stop taking your medicine because you may develop a severe reaction. Your body becomes used to the medicine. This does NOT mean you are addicted. Addiction is a behavior related to getting and using a drug for a non-medical reason. If you have pain, you have a medical reason to take pain medicine. Your doctor will tell you how much medicine to take. If your doctor wants you to stop the medicine, the dose will be slowly lowered over time to avoid any side effects. You may get drowsy or dizzy when you first start taking the medicine or change doses. Do not drive, use machinery, or do anything that may be dangerous until you know how the medicine affects you. Stand or sit up slowly. There are different types of narcotic medicines (opiates) for pain. If you take more than one type at the same time, you may have more side effects. Give your health care provider a list of all medicines you use. Your doctor will tell you how much medicine to take. Do not take more medicine than directed. Call emergency for help if you have problems breathing. The medicine will cause constipation. Try to have a bowel movement at least every 2 to 3 days. If you do not have a bowel movement for 3 days, call your doctor or health career development director. Too much acetaminophen can be very dangerous. Do not take Tylenol (acetaminophen) or medicines that contain acetaminophen with this medicine. Many non-prescription medicines contain acetaminophen. Always read the labels carefully. Ketorolac Tromethamine Oral tablet What is this medicine? KETOROLAC (coreen toe ROLE ak) is a non-steroidal anti-inflammatory drug (NSAID). It is used for a short while to treat moderate to severe pain, including pain after surgery. It should not be used for more than 5 days. How should I use this medicine? Take this medicine by mouth with a full glass of water. Follow the directions on the prescription label. Take your medicine at regular intervals. Do not take your medicine more often than directed. Do not take more than the recommended dose. A special MedGuide will be given to you by the pharmacist with each prescription and refill. Be sure to read this information carefully each time. Talk to your mechanical oxidizer regarding the use of this medicine in children. While this drug may be prescribed for children as young as 16 years of age for selected conditions, precautions do apply. Patients over 65 years old may have a stronger reaction and need a smaller dose. What side effects may I notice from receiving this medicine? Side effects that you should report to your doctor or health career development director as soon as possible: allergic reactions like skin rash, itching or hives, swelling of the face, lips, or tongue black or tarry stools breathing problems changes in vision chest pain high blood pressure nausea or vomiting redness, blistering, peeling or loosening of the skin, including inside the mouth severe abdominal pain slurred speech or weakness on one side of the body unexplained weight gain or swelling unusual bleeding or bruising unusually weak or tired yellowing of eyes or skin Side effects that usually do not require medical attention (report to your doctor or health career development director if they continue or are bothersome): diarrhea dizziness headache heartburn What may interact with this medicine? Do not take this medicine with any of the following medications: aspirin and aspirin-like medicines cidofovir methotrexate NSAIDs, medicines for pain and inflammation, like ibuprofen or naproxen pemetrexed probenecid This medicine may also interact with the following medications: alcohol alendronate alprazolam carbamazepine cyclosporine diuretics flavocoxid fluoxetine ginkgo lithium medicines for high blood pressure like enalapril medicines that affect platelets like pentoxifylline medicines that treat or prevent blood clots like heparin, warfarin muscle relaxants phenytoin steroid medicines like prednisone or cortisone thiothixene What if I miss a dose? If you miss a dose, take it as soon as you can. If it is almost time for your next dose, take only that dose. Do not take double or extra doses. Where should I keep my medicine? Keep out of the reach of children. Store at room temperature between 20 and 25 degrees C (68 and 77 degrees F). Throw away any unused medicine after the expiration date. What should I tell my health care provider before I take this medicine? They need to know if you have any of these conditions: asthma bleeding problems like hemophilia cigarette smoker drink more than 3 alcohol containing drinks a day heart disease or circulation problems such as heart failure or leg edema (fluid retention) high blood pressure kidney disease liver disease stomach bleeding or ulcers an unusual or allergic reaction to ketorolac, aspirin, other NSAIDs, other medicines, foods, dyes, or preservatives or trying to get breast-feeding What should I watch for while using this medicine? Tell your doctor or health career development director if your pain does not get better. Talk to your doctor before taking another medicine for pain. Do not treat yourself. This medicine does not prevent heart attack or stroke. In fact, this medicine may increase the chance of a heart attack or stroke. The chance may increase with longer use of this medicine and in people who have heart disease. If you take aspirin to prevent heart attack or stroke, talk with your doctor or health career development director. Do not take medicines such as ibuprofen and naproxen with this medicine. Side effects such as stomach upset, nausea, or ulcers may be more likely to occur. Many medicines available without a prescription should not be taken with this medicine. This medicine can cause ulcers and bleeding in the stomach and intestines at any time during treatment. Do not smoke cigarettes or drink alcohol. These increase irritation to your stomach and can make it more susceptible to damage from this medicine. Ulcers and bleeding can happen without warning symptoms and can cause . You may get drowsy or dizzy. Do not drive, use machinery, or do anything that needs mental alertness until you know how this medicine affects you. Do not stand or sit up quickly, especially if you are an older patient. This reduces the risk of dizzy or fainting spells. This medicine can cause you to bleed more easily. Try to avoid damage to your teeth and gums when you brush or floss your teeth. You have been given the following additional information: Kidney Stone W/ Colic Hematuria Ondansetron Oral disintegrating tablet Hydrocodone Bitartrate, Acetaminophen Oral tablet Ketorolac Tromethamine Oral tablet Do not work today, for two days. (Electronically signed by Opal Cardozo A.R.N.P. 03/20/2017 23:03)
== END 2017-03-20 23:00 | disposition home or self-care (01) ==
LOC: ED SRH 19:16
DX: N13.2 Hydronephrosis with renal and ureteral calculous obstruction (principal); R31.9 Hematuria, unspecified; E11.9 Type 2 diabetes mellitus without complications; I10 Essential (primary) hypertension; K21.9 Gastro-esophageal reflux disease without esophagitis; Z79.84 Long term (current) use of oral hypoglycemic drugs; Z79.899 Other long term (current) drug therapy
CPT/HCPCS: 90004; 90100; 92235; 92530; 95059